=== PATIENT | female | born 1950 | race Caucasian/White ===

== ENCOUNTER 2021-03-28 10:26 | Outpatient (CLI) | payer OTHER | END 2021-03-28 10:31 | disposition home or self-care (01) | LOC: NUCLEAR 10:26 | PROVIDERS: ATTEND Internal Medicine Cardiovascular Disease | DX: M81.0 Age-related osteoporosis without current pathological fracture (principal); E55.9 Vitamin D deficiency, unspecified ==

== ENCOUNTER 2021-05-07 09:50 | Outpatient (CLI) | payer OTHER | END 2021-05-07 09:54 | disposition home or self-care (01) | LOC: SONOGRAMA 09:50 | PROVIDERS: ATTEND Pathology Anatomic Pathology & Clinical Pathology | DX: E04.1 Nontoxic single thyroid nodule (principal) ==